=== PATIENT | female | born 1950 | race Two or more races ===

== ENCOUNTER 2020-11-25 04:36 | Inpatient (IN) | payer MEDICARE, MEDICAID ==
[~2020-11-25] VITALS: Ht 157.5 cm; Wt 61.7 kg
[~2020-11-25 04:36] MED LIST: ALBUTEROL; ATROVENT; SPIRIVA
[2020-11-25] MEDS ORDERED: ONDANSETRON HCL 4MG/2ML INJ IV STA (05:23)
[2020-11-25] MEDS ORDERED: MORPHINE SULFATE 4 MG/ML CPJ (NOT FOR IM USE) IV STA (05:23)
[2020-11-25 06:10] LABS: BASOPHILS % 0.4 % (0.0-2.0); EOSINOPHILS % 0.8 % (0.0-5.0); HEMATOCRIT. 48.8 % (36.0-48.0); HEMOGLOBIN. 16.5 g/dL (12.0-16.0); LYMPHOCYTES % 14.1 % (20.0-50.0); MEAN CORPUSCULAR HEMOGLOBIN 29.2 pg (28.0-32.0); MEAN CORPUSCULAR VOLUME 86.6 fL (81.0-99.0); MEAN PLATELET VOLUME 9.8 fl (7.4-10.4); MONOCYTES % 13.3 % (2.0-8.0); NEUTROPHILS % 71.4 % (40.0-76.0); PLATELET 205 x1000/uL (130-400); RED BLOOD CELL COUNT 5.63 mill/uL (4.2-5.4); RED CELL DISTRIBUTION WIDTH 13.6 % (11.6-14.6)
[2020-11-25 06:16] LABS: CHLORIDE 103 mEq/L (98-107)
[2020-11-25 06:24] LABS: INR 1.1; PROTHROMBIN TIME 11.4 sec (9.6-11.0)
[2020-11-25 06:58] LABS: CLARITY URINE CLOUDY (CLEAR); COLOR URINE DARK YELLOW (YELLOW); KETONES URINE TRACE (NEGATIVE); LEUKOCYTE ESTERASE URINE 1+ (NEGATIVE); NITRITE URINE NEGATIVE (NEGATIVE); OCCULT BLOOD URINE NEGATIVE (NEGATIVE); PROTEIN URINE 1+ (NEGATIVE); SPECIFIC GRAVITY URINE 1.024 (1.005-1.030)
[2020-11-25] MEDS ORDERED: SODIUM CHLORIDE 0.9% 1,000 ML IV ONE (08:00)
[2020-11-25 12:00] VITALS: BP 189/105
[2020-11-25 12:45] VITALS: BP 189/105
[2020-11-25] MEDS ORDERED: LEVO112T7 MT (13:39)
[2020-11-25] MEDS ORDERED: NITROGLYCERIN OINT 1GM/INCH UDPKT TD SCH (14:00)
[2020-11-25] MEDS ORDERED: ONDANSETRON HCL 4MG/2ML INJ IV PRN ×2 (14:00→19:30)
[2020-11-25] MEDS ORDERED: KETOROLAC 15MG/ML VIAL IV PRN (14:00)
[2020-11-25] MEDS ORDERED: UMEC1DIS INH (15:20)
[2020-11-25 16:00] VITALS: BP 138/65
[2020-11-25] MEDS ORDERED: DEXT 5%/0.45% NACL 1000ML 1,000 ML IV NR (17:46)
[2020-11-25] MEDS ORDERED: DEXT 5%/0.45% NACL 1000ML 1,000 ML IV SCH (19:30)
[2020-11-25] MEDS ORDERED: KETOROLAC 30MG/ML VIAL IV PRN (19:30)
[2020-11-25] MEDS ORDERED: HYDRALAZINE 20MG/ML VIAL IV PRN (19:30)
[2020-11-25] MEDS ORDERED: ACETAMINOPHEN 650MG SUPP PR PRN ×2 (19:30)
[2020-11-25 20:00] VITALS: BP 149/80
[2020-11-25] MEDS: DEXT 5%/0.45% NACL 1000ML 1,000 ML IV SCH (20:19)
[2020-11-25] MEDS: NITROGLYCERIN OINT 1GM/INCH UDPKT TD SCH (20:20)
[2020-11-26] VITALS: BP 109/72
[2020-11-26] MEDS: DEXT 5%/0.45% NACL 1000ML 1,000 ML IV SCH ×4 (03:00→22:07)
[2020-11-26] MEDS: NITROGLYCERIN OINT 1GM/INCH UDPKT TD SCH ×4 (03:00→20:50)
[2020-11-26 04:00] VITALS: BP 149/75
[2020-11-26 05:21] LABS: CHLORIDE 105 mEq/L (98-107)
[2020-11-26 05:29] LABS: PHOSPHORUS 2.4 mg/dL (2.5-4.9)
[2020-11-26 05:56] LABS: HEMATOCRIT. 41.8 % (36.0-48.0); HEMOGLOBIN. 14.1 g/dL (12.0-16.0); MEAN CORPUSCULAR HEMOGLOBIN 29.3 pg (28.0-32.0); MEAN CORPUSCULAR VOLUME 86.9 fL (81.0-99.0); PLATELET 152 x1000/uL (130-400); RED BLOOD CELL COUNT 4.81 mill/uL (4.2-5.4); RED CELL DISTRIBUTION WIDTH 13.7 % (11.6-14.6)
[2020-11-26 08:00] VITALS: BP 132/69
[2020-11-26] MEDS ORDERED: CLONIDINE HCL 0.1MG/24HR PATCH TD SCH (09:00)
[2020-11-26] MEDS: PANTOPRAZOLE SODIUM 40 MG/VIAL IV SCH (09:52)
[2020-11-26 12:00] VITALS: BP 116/68
[2020-11-26 13:27] LABS: PLATELET ESTIMATE NORMAL
[2020-11-26 16:00] VITALS: BP 139/66
[2020-11-26 20:00] VITALS: BP 140/64
[2020-11-27] VITALS (7 sets, daily range): BP systolic 104–169; BP diastolic 62–86
[2020-11-27] MEDS: NITROGLYCERIN OINT 1GM/INCH UDPKT TD SCH ×4 (04:08→20:59)
[2020-11-27] MEDS: DEXT 5%/0.45% NACL 1000ML 1,000 ML IV SCH ×3 (04:59→18:44)
[2020-11-27] MEDS: PANTOPRAZOLE SODIUM 40 MG/VIAL IV SCH (08:44)
[2020-11-27 12:00] LABS: BASOPHILS % 0.3 % (0.0-2.0); EOSINOPHILS % 1.8 % (0.0-5.0); HEMATOCRIT. 40.8 % (36.0-48.0); HEMOGLOBIN. 14.1 g/dL (12.0-16.0); LYMPHOCYTES % 17.5 % (20.0-50.0); MEAN CORPUSCULAR HEMOGLOBIN 29.3 pg (28.0-32.0); MEAN CORPUSCULAR VOLUME 84.6 fL (81.0-99.0); MONOCYTES % 12.9 % (2.0-8.0); NEUTROPHILS % 67.5 % (40.0-76.0); PLATELET 154 x1000/uL (130-400); RED BLOOD CELL COUNT 4.82 mill/uL (4.2-5.4); RED CELL DISTRIBUTION WIDTH 13.2 % (11.6-14.6)
[2020-11-27 12:22] LABS: CHLORIDE 104 mEq/L (98-107)
[2020-11-27] MEDS ORDERED: ACETAMINOPHEN 325MG TABLET PO PRN (14:28)
[2020-11-27] MEDS ORDERED: POTASSIUM CHLORIDE 20MEQ TABLET SR PO NR (14:45)
[2020-11-27] MEDS ORDERED: LACTULOSE 20G/30ML UDC PO NR (14:45)
[2020-11-27] MEDS: PIPERACILLIN/TAZOBACTAM 3.375 G in DEXTROSE 5% WATER 50 ML IV SCH ×2 (15:09→21:40)
[2020-11-27 19:48] LABS: CLARITY URINE CLEAR (CLEAR); COLOR URINE DARK YELLOW (YELLOW); KETONES URINE TRACE (NEGATIVE); LEUKOCYTE ESTERASE URINE 2+ (NEGATIVE); NITRITE URINE POSITIVE (NEGATIVE); OCCULT BLOOD URINE TRACE (NEGATIVE); PH URINE 6.5 (4.5-8.0); PROTEIN URINE TRACE (NEGATIVE); SPECIFIC GRAVITY URINE 1.024 (1.005-1.030)
[2020-11-27] MEDS: FAMOTIDINE 20MG/2ML VIAL IV SCH (20:59)
[2020-11-28] VITALS: BP 120/76
[2020-11-28 04:00] VITALS: BP 146/57
[2020-11-28] MEDS: NITROGLYCERIN OINT 1GM/INCH UDPKT TD SCH ×2 (04:28→09:58)
[2020-11-28] MEDS: DEXT 5%/0.45% NACL 1000ML 1,000 ML IV SCH ×2 (04:29→09:59)
[2020-11-28] MEDS: PIPERACILLIN/TAZOBACTAM 3.375 G in DEXTROSE 5% WATER 50 ML IV SCH (05:13)
[2020-11-28 06:43] LABS: BASOPHILS % 0.6 % (0.0-2.0); EOSINOPHILS % 4.2 % (0.0-5.0); HEMATOCRIT. 37.6 % (36.0-48.0); HEMOGLOBIN. 12.9 g/dL (12.0-16.0); LYMPHOCYTES % 25.4 % (20.0-50.0); MEAN CORPUSCULAR HEMOGLOBIN 29.4 pg (28.0-32.0); MEAN CORPUSCULAR VOLUME 85.9 fL (81.0-99.0); MEAN PLATELET VOLUME 9.5 fl (7.4-10.4); MONOCYTES % 10.5 % (2.0-8.0); NEUTROPHILS % 59.3 % (40.0-76.0); PLATELET 159 x1000/uL (130-400); RED BLOOD CELL COUNT 4.38 mill/uL (4.2-5.4)
[2020-11-28 08:00] VITALS: BP 153/79
[2020-11-28 08:58] LABS: CHLORIDE 106 mEq/L (98-107)
[2020-11-28] MEDS: FAMOTIDINE 20MG/2ML VIAL IV SCH (09:58)
[2020-11-28] MEDS ORDERED: POTASSIUM CHLORIDE 20MEQ TABLET SR PO NR (10:45)
[2020-11-28 12:00] VITALS: BP 130/75
[2020-11-28] MEDS ORDERED: LACTULOSE 20G/30ML UDC PO SCH (12:15)
[2020-11-28] MEDS ORDERED: LEVOFLOXACIN 500MG PREMIX 100 ML IV SCH (12:30)
[2020-11-28] MEDS ORDERED: METRONIDAZOLE 500MG TABLET PO SCH (12:51)
== END 2020-11-28 15:20 | disposition home or self-care (01) | DRG 388 ==
LOC: ER 04:36 → 7EST 09:24 → ENRESERV 10:25
PROVIDERS: ADMIT Internal Medicine; ATTEND Internal Medicine
PROC: 0D9670Z Drainage of Stomach with Drainage Device, Via Natural or Artificial Opening (ICD-10-PCS; principal; 2020-11-25)
DX: K56.609 Unspecified intestinal obstruction, unspecified as to partial versus complete obstruction (principal); N17.0 Acute kidney failure with tubular necrosis; N39.0 Urinary tract infection, site not specified; R65.10 Systemic inflammatory response syndrome (SIRS) of non-infectious origin without acute organ dysfunction; D25.9 Leiomyoma of uterus, unspecified; D72.825 Bandemia; E03.9 Hypothyroidism, unspecified; E86.0 Dehydration; E87.6 Hypokalemia; M19.90 Unspecified osteoarthritis, unspecified site; F17.200 Nicotine dependence, unspecified, uncomplicated; J44.9 Chronic obstructive pulmonary disease, unspecified; Z85.118 Personal history of other malignant neoplasm of bronchus and lung; Z79.899 Other long term (current) drug therapy
CPT/HCPCS: 36415; 71045; 74018; 74176; 80053; 81003; 83735; 84100; 84145; 85025; 93005; 97161; 99285; C9113; J1885; J1956; J2270; J2405; J2543; J3490; J7030; J7060

== ENCOUNTER 2022-03-05 07:30 | Inpatient (IN) | payer MEDICARE, MEDICAID ==
[~2022-03-05] VITALS: Ht 160 cm; Wt 71.2 kg
[~2022-03-05 07:30] MED LIST changes: +LEVO112T7 PO; +UMEC1DIS INH
[2022-03-05] MEDS ORDERED: METHYLPREDNISOLONE SOD SUCC 125 MG/2 ML VIAL IV STA (07:56)
[2022-03-05] MEDS ORDERED: IPRATROPIUM BROMIDE (0.02%) 0.5MG/2.5ML NEB HHN STA (07:56)
[2022-03-05] MEDS: ALBUTEROL (0.083%) 2.5MG/3ML NEB HHN SCH ×3 (08:00→09:00)
[2022-03-05] MEDS ORDERED: MAGNESIUM 2 G PREMIX 50 ML IV ONE (08:00)
[2022-03-05] MEDS ORDERED: ALBUTEROL (0.5%) 2.5MG/0.5ML NEB HHN ONE (08:57)
[2022-03-05] MEDS ORDERED: AZITHROMYCIN 500MG/250ML 250 ML IV ONE (09:45)
[2022-03-05] MEDS ORDERED: CEFTRIAXONE 1 G PREMIX 50 ML IV ONE (09:45)
[2022-03-05 10:34] LABS: BASOPHILS % 0.7 % (0.0-2.0); HEMATOCRIT. 43.4 % (36.0-48.0); HEMOGLOBIN. 14.3 g/dL (12.0-16.0); MEAN CORPUSCULAR HEMOGLOBIN 29.7 pg (28.0-32.0); MEAN CORPUSCULAR VOLUME 89.8 fL (81.0-99.0); MEAN PLATELET VOLUME 8.8 fl (7.4-10.4); MONOCYTES % 6.2 % (2.0-8.0); NEUTROPHILS % 81.1 % (40.0-76.0); PLATELET 175 x1000/uL (130-400); RED BLOOD CELL COUNT 4.84 mill/uL (4.2-5.4); RED CELL DISTRIBUTION WIDTH 13.6 % (11.6-14.6)
[2022-03-05 10:42] LABS: CHLORIDE 106 mEq/L (98-107)
[2022-03-05] MEDS ORDERED: METHYLPREDNISOLONE SOD SUCC 125 MG/2 ML VIAL ONE (11:28)
[2022-03-05] MEDS ORDERED: MAGNESIUM 1 G PREMIX 200 ML IV ONE (11:35)
[2022-03-05] MEDS ORDERED: CEFTRIAXONE 1 G PREMIX 50 ML IV NR (15:45)
[2022-03-05 20:30] VITALS: BP 129/83
[2022-03-05 20:48] VITALS: BP 129/83
[2022-03-05 21:00] VITALS: BP 137/74
[2022-03-05 22:00] VITALS: BP 137/84
[2022-03-05 23:00] VITALS: BP 149/66
[2022-03-05] MEDS ORDERED: PROMETHAZINE/DEXTROMETHORPHAN 6.25-15MG/5ML BOTTLE 120ML PO PRN (23:15)
[2022-03-05] MEDS ORDERED: DEXTROSE 50% WATER 50ML SYRINGE IV PRN (23:15)
[2022-03-05] MEDS ORDERED: HYDROCODONE/ACETAMINOPHEN 5/325MG TABLET PO PRN (23:15)
[2022-03-05] MEDS ORDERED: ACETAMINOPHEN 325MG TABLET PO PRN (23:15)
[2022-03-05] MEDS ORDERED: FLUT1BLS3 INH (23:48)
[2022-03-05] MEDS ORDERED: MELO-106 PO (23:48)
[2022-03-05] MEDS ORDERED: FURO40TA5 PO (23:48)
[2022-03-05] MEDS ORDERED: CHOL400D7 PO (23:48)
[2022-03-05] MEDS ORDERED: OXYB5TAB17 PO (23:48)
[2022-03-05] MEDS ORDERED: METH-817 PO (23:48)
[2022-03-06] VITALS (9 sets, daily range): BP systolic 127–151; BP diastolic 40–86
[2022-03-06] MEDS: IPRATROPIUM/ALBUTEROL 0.5-3(2.5)MG/3ML NEB HHN SCH (02:04)
[2022-03-06] MEDS: BLOOD SUGAR DIAGNOSTIC STRIP TEST SCH ×4 (06:01→21:39)
[2022-03-06] MEDS: INSULIN LISPRO 100 UNITS/ML SUBCUT SCH ×4 (07:20→21:00)
[2022-03-06] MEDS ORDERED: NALOXONE HCL 0.4MG/ML VIAL IV PRN (07:45)
[2022-03-06 07:53] LABS: BASOPHILS % 0.1 % (0.0-2.0); EOSINOPHILS % 0.1 % (0.0-5.0); HEMATOCRIT. 40.9 % (36.0-48.0); HEMOGLOBIN. 13.7 g/dL (12.0-16.0); LYMPHOCYTES % 12.7 % (20.0-50.0); MEAN CORPUSCULAR HEMOGLOBIN 29.5 pg (28.0-32.0); MEAN CORPUSCULAR VOLUME 88.3 fL (81.0-99.0); MEAN PLATELET VOLUME 9.1 fl (7.4-10.4); MONOCYTES % 5.9 % (2.0-8.0); NEUTROPHILS % 81.2 % (40.0-76.0); PLATELET 220 x1000/uL (130-400); RED BLOOD CELL COUNT 4.64 mill/uL (4.2-5.4); RED CELL DISTRIBUTION WIDTH 13.6 % (11.6-14.6)
[2022-03-06] MEDS: CHOLECALCIFEROL (D3) 1000 UNIT TABLET PO SCH (08:36)
[2022-03-06] MEDS: OXYBUTYNIN CHLORIDE 5MG TABLET PO SCH (08:36)
[2022-03-06] MEDS: PANTOPRAZOLE SODIUM 40 MG/VIAL IV SCH (08:36)
[2022-03-06] MEDS: LEVOTHYROXINE SODIUM 112MCG TABLET PO SCH (08:37)
[2022-03-06] MEDS: FUROSEMIDE 40MG TABLET PO SCH (08:37)
[2022-03-06] MEDS: ENOXAPARIN 40MG/0.4ML SYR SUBCUT SCH (08:37)
[2022-03-06] MEDS ORDERED: AZITHROMYCIN 500 MG in DEXT 5% WATER 250 ML IV SCH (09:00)
[2022-03-06] MEDS ORDERED: CEFTRIAXONE 1 G PREMIX 50 ML IV SCH (09:00)
[2022-03-06] MEDS ORDERED: METHYLPREDNISOLONE SOD SUCC 40 MG/ML VIAL IV SCH (09:00)
[2022-03-06 09:30] LABS: CHLORIDE 106 mEq/L (98-107)
[2022-03-06] MEDS ORDERED: METHADONE HCL 10MG TABLET PO NR (09:30)
[2022-03-06 09:38] LABS: HDL CHOLESTEROL 62 mg/dL (40-59); LDL CHOLESTEROL 96 mg/dL (5-100)
[2022-03-06] MEDS: CEFTRIAXONE 1,000 MG in DEXTROSE 5% WATER 50 ML IV SCH (10:36)
[2022-03-06] MEDS ORDERED: METHADONE HCL 5MG TABLET PO NR (11:00)
[2022-03-06] MEDS: AZITHROMYCIN 500 MG in DEXT 5% WATER 250 ML IV SCH (11:31)
[2022-03-06] MEDS: METHYLPREDNISOLONE SOD SUCC 40 MG/ML VIAL IV SCH (15:53)
[2022-03-07] VITALS: BP 146/78
[2022-03-07] MEDS: METHYLPREDNISOLONE SOD SUCC 40 MG/ML VIAL IV SCH ×3 (00:43→16:30)
[2022-03-07] MEDS: IPRATROPIUM/ALBUTEROL 0.5-3(2.5)MG/3ML NEB HHN SCH ×6 (02:04→20:30)
[2022-03-07 04:00] VITALS: BP 152/81
[2022-03-07 06:26] LABS: BASOPHILS % 0.1 % (0.0-2.0); HEMATOCRIT. 42.4 % (36.0-48.0); HEMOGLOBIN. 14.2 g/dL (12.0-16.0); MEAN CORPUSCULAR HEMOGLOBIN 29.5 pg (28.0-32.0); MEAN CORPUSCULAR VOLUME 88.2 fL (81.0-99.0); MONOCYTES % 2.1 % (2.0-8.0); NEUTROPHILS % 89.8 % (40.0-76.0); PLATELET 252 x1000/uL (130-400); RED CELL DISTRIBUTION WIDTH 13.3 % (11.6-14.6)
[2022-03-07] MEDS: BLOOD SUGAR DIAGNOSTIC STRIP TEST SCH ×4 (06:54→21:50)
[2022-03-07] MEDS: INSULIN LISPRO 100 UNITS/ML SUBCUT SCH ×4 (06:54→21:00)
[2022-03-07 07:30] LABS: CHLORIDE 105 mEq/L (98-107)
[2022-03-07 08:00] VITALS: BP 145/86
[2022-03-07] MEDS: PANTOPRAZOLE SODIUM 40 MG/VIAL IV SCH (09:00)
[2022-03-07] MEDS: FUROSEMIDE 40MG TABLET PO SCH (10:29)
[2022-03-07] MEDS: OXYBUTYNIN CHLORIDE 5MG TABLET PO SCH (10:29)
[2022-03-07] MEDS: METHADONE HCL 10MG TABLET PO SCH (10:29)
[2022-03-07] MEDS: CHOLECALCIFEROL (D3) 1000 UNIT TABLET PO SCH (10:29)
[2022-03-07] MEDS: ENOXAPARIN 40MG/0.4ML SYR SUBCUT SCH (10:30)
[2022-03-07] MEDS: CEFTRIAXONE 1,000 MG in DEXTROSE 5% WATER 50 ML IV SCH (10:30)
[2022-03-07] MEDS: METHADONE HCL 5MG TABLET PO SCH (10:31)
[2022-03-07] MEDS: LEVOTHYROXINE SODIUM 112MCG TABLET PO SCH (10:31)
[2022-03-07] MEDS: AZITHROMYCIN 500 MG in DEXT 5% WATER 250 ML IV SCH (10:32)
[2022-03-07 11:49] VITALS: BP 143/80
[2022-03-07 12:05] LABS: BG BASE EXCESS 2.7 mmol/L (-2.0-2.0); BG CARBOXYHEMOGLOBIN 0.7 % (0.5-1.5); BG DEOXYHEMOGLOBIN 11.1 % (0.0-5.0); BG FRACTION INSPIRED OXYGEN 21; BG HCO3 ACT 27.8 mmol/L (22.0-26.0); BG METHEMOGLOBIN 0.3 % (0.0-1.5); BG OXYGEN SATURATION 88.8 % (92.0-98.5); BG OXYHEMOGLOBIN 87.9 % (94.0-97.0); BG PCO2 44.1 mmHg (35.0-45.0); BG PH 7.417 (7.350-7.450); BG PO2 53.9 mmHg (75.0-100.0); BG SAMPLE SITE LEFT RADIAL; BG TOTAL HEMOGLOBIN 15.4 g/dL (12.0-18.0); BG VENT MODE ROOM AIR
[2022-03-07 13:13] LABS: T4 FREE 1.31 ng/dL (0.76-1.46)
[2022-03-07 16:00] VITALS: BP 135/83
[2022-03-07 20:00] VITALS: BP 142/73
[2022-03-08] VITALS: BP 140/78
[2022-03-08] MEDS: METHYLPREDNISOLONE SOD SUCC 40 MG/ML VIAL IV SCH ×3 (00:19→17:37)
[2022-03-08] MEDS: IPRATROPIUM/ALBUTEROL 0.5-3(2.5)MG/3ML NEB HHN SCH ×3 (00:54→14:04)
[2022-03-08 04:00] VITALS: BP 160/99
[2022-03-08] MEDS: BLOOD SUGAR DIAGNOSTIC STRIP TEST SCH ×4 (06:11→17:02)
[2022-03-08] MEDS: INSULIN LISPRO 100 UNITS/ML SUBCUT SCH ×3 (07:20→17:12)
[2022-03-08 08:00] VITALS: BP 126/83
[2022-03-08] MEDS: PANTOPRAZOLE SODIUM 40 MG/VIAL IV SCH (09:22)
[2022-03-08] MEDS: METHADONE HCL 10MG TABLET PO SCH (09:23)
[2022-03-08] MEDS: METHADONE HCL 5MG TABLET PO SCH (09:23)
[2022-03-08] MEDS: LEVOTHYROXINE SODIUM 112MCG TABLET PO SCH (09:24)
[2022-03-08] MEDS: OXYBUTYNIN CHLORIDE 5MG TABLET PO SCH (09:24)
[2022-03-08] MEDS: CHOLECALCIFEROL (D3) 1000 UNIT TABLET PO SCH (09:24)
[2022-03-08] MEDS: FUROSEMIDE 40MG TABLET PO SCH (09:27)
[2022-03-08] MEDS: ENOXAPARIN 40MG/0.4ML SYR SUBCUT SCH (09:27)
[2022-03-08] MEDS: CEFTRIAXONE 1,000 MG in DEXTROSE 5% WATER 50 ML IV SCH (09:27)
[2022-03-08] MEDS: AZITHROMYCIN 500 MG in DEXT 5% WATER 250 ML IV SCH (11:29)
[2022-03-08 11:55] VITALS: BP 105/73
[2022-03-08 16:00] VITALS: BP 135/88
[2022-03-08 16:58] VITALS: BP 135/77
[2022-03-09] MEDS ORDERED: AZITHROMYCIN 500 MG TABLET PO SCH (09:00)
== END 2022-03-08 19:40 | disposition home or self-care (01) | DRG 193 ==
LOC: ER 07:30 → EDBEDREQTM 10:47 → EDBEDREQ 10:47 → 3WST 12:16 → EDBEDREQTM 12:23 → EDBEDREQ 12:23 → ENRESERV 18:18
PROVIDERS: ADMIT Internal Medicine; ATTEND Internal Medicine
DX: J18.9 Pneumonia, unspecified organism (principal); J96.91 Respiratory failure, unspecified with hypoxia; J44.1 Chronic obstructive pulmonary disease with (acute) exacerbation; J44.0 Chronic obstructive pulmonary disease with (acute) lower respiratory infection; I10 Essential (primary) hypertension; Z20.822 Contact with and (suspected) exposure to COVID-19; Z79.899 Other long term (current) drug therapy; Z87.891 Personal history of nicotine dependence
CPT/HCPCS: 36415; 36600; 71045; 71250; 80048; 80053; 80061; 82375; 82805; 82962; 83036; 83880; 84439; 84443; 84484; 85025; 87426; 93005; 93306; 94640; 99285; C9113; C9803; J0456; J0696; J1650; J1815; J2920; J2930; J3475; J7060